=== PATIENT | male | born 1950 | race Caucasian/White ===

== ENCOUNTER 2016-07-27 12:09 | Emergency (ER) | payer OTHER ==
[2016-07-27] MEDS ORDERED: IOPAMIDOL-300 100 ML VIAL IVP ONE (18:04)
== END 2016-07-27 19:16 | disposition home or self-care (01) ==
DX: R07.9 Chest pain, unspecified (principal); I10 Essential (primary) hypertension; E78.00 Pure hypercholesterolemia, unspecified; Z85.528 Personal history of other malignant neoplasm of kidney; Z86.718 Personal history of other venous thrombosis and embolism; J45.909 Unspecified asthma, uncomplicated; M06.9 Rheumatoid arthritis, unspecified
CPT/HCPCS: 36415; 71020; 71275; 74177; 80053; 83690; 84484; 85025; 93005; 93010; 99283; 99285; Q9967

== ENCOUNTER 2016-09-12 08:20 | Outpatient (CLI) | payer OTHER ==
[2016-09-12 09:59] LABS: ALBUMIN/GLOBULIN RATIO 1.4 (1.0-2.2); BILIRUBIN,TOTAL 0.7 mg/dL (0.2-1.0); BUN - BLOOD UREA NITROGEN 14 mg/dL (6-20); CALCIUM 8.9 mg/dL (8.5-10.3); CARBON DIOXIDE - CO2 28 mmol/L (21-32); CHLORIDE 107 mmol/L (101-111); CHOL/HDL RATIO 5.8 (<5.0); CHOLESTEROL 214 mg/dL; GFR - MDRD 75 (>89); GLUCOSE 103 mg/dL (70-100); HDL CHOLESTEROL 37 mg/dL; LDL/HDL RATIO 4.1 (<3.6); POTASSIUM 3.8 mmol/L (3.5-5.0); SODIUM 141 mmol/L (135-145); TOTAL PROTEIN 7.1 g/dL (6.7-8.2); TRIGLYCERIDES 134 mg/dL; VLDL CHOLESTEROL 27 mg/dL
--- NOTE | 2016-09-12 15:30 | XRAY Report ---
LEFT SHOULDER, FOUR VIEWS: 09/12/2016 FINDINGS: Soft tissue is normal. No fracture or bone lesion is seen. [id number] narrowing of the left glenohumeral joint is noted with moderate-size spur seen emanating from the inferomedial as pect of the left humeral head. Left AC joint shows significant abnormality. IMPRESSION: CNTU-LI-WPLEKKTS OSTEOARTHRITIS OF THE LEFT GLENOHUMERAL JOINT IS NOTED. :9 JOB #: [id number] EXT JOB #:[id number]
== END 2016-09-12 08:21 | disposition home or self-care (01) ==
LOC: DI 08:20
PROVIDERS: ATTEND Physician Assistant
DX: I10 Essential (primary) hypertension (principal); R06.00 Dyspnea, unspecified; E55.9 Vitamin D deficiency, unspecified; C64.2 Malignant neoplasm of left kidney, except renal pelvis; E66.9 Obesity, unspecified; E78.5 Hyperlipidemia, unspecified; M19.012 Primary osteoarthritis, left shoulder
CPT/HCPCS: 36415; 80053; 80061; 82306; 84153; 84443; 93306

== ENCOUNTER 2019-03-11 11:11 | Outpatient (CLI) | payer MEDICARE, OTHER ==
--- NOTE | 2019-03-12 11:38 | XRAY Report ---
Reason: WHEEZING Procedure Date: 03/11/2019 Accession Number: [id number] / [id number] Procedure: XR - Chest 2 View X-Ray CPT Code: 13494 Final Report FULL RESULT: EXAM: CHEST RADIOGRAPHY EXAM DATE: 03/11/2019 11:30 AM. CLINICAL HISTORY: WHEEZING. COMPARISON: CHEST 2 VIEW PA/LAT 07/27/2016 12:39 PM. TECHNIQUE: 2 views. FINDINGS: Lungs/Pleura: Slightly low lung volumes with mild left basilar/lingular opacity. Small subtle opacity at left upper lung. No pulmonary edema. No pleural effusion. No pneumothorax. Mediastinum: Stable cardiomediastinal contours. There is tortuosity of thoracic aorta. Other: None. IMPRESSION: Slightly low lung volumes with mild opacities in left upper lung and base, probably atelectasis. RADIA
== END 2019-03-11 11:12 | disposition home or self-care (01) ==
LOC: DI 11:11
PROVIDERS: ATTEND Nurse Practitioner Family
DX: R91.8 Other nonspecific abnormal finding of lung field (principal)
CPT/HCPCS: 71046

== ENCOUNTER 2019-04-23 11:08 | Outpatient (CLI) | payer MEDICARE, OTHER ==
--- NOTE | 2019-04-23 12:17 | XRAY Report ---
Reason: DYSPNEA UNSPECIFIED,PLEUODYNIA,PAIN IN THORACIC S Procedure Date: 04/23/2019 Accession Number: [id number] / [id number] Procedure: XR - Thoracic Spine 2 View CPT Code: Final Report FULL RESULT: EXAM: THORACIC SPINE RADIOGRAPHY EXAM DATE: 04/23/2019 12:00 PM. CLINICAL HISTORY: DYSPNEA UNSPECIFIED, PLEUODYNIA, PAIN IN THORACIC S. COMPARISON: CHEST 2 VIEW 03/11/2019 11:24 AM. TECHNIQUE: 2 views. FINDINGS: Alignment: Right convex thoracic scoliosis is evident. No spondylolisthesis. Bones: Osteopenia is noted. No acute fracture lines are evident in the thoracic spine. Disks: Multilevel disk height loss with endplate sclerosis is seen in the thoracic spine. Soft Tissues: Low lung volumes noted. Linear basilar opacities could reflect atelectasis or scarring. IMPRESSION: 1. Osteopenia without evident acute fractures in the thoracic spine. 2. Right convex thoracic scoliosis noted. RADIA
--- NOTE | 2019-04-23 12:21 | XRAY Report ---
Reason: DYSPNEA UNSPECIFIED,PLEUODYNIA,PAIN IN THORACIC S Procedure Date: 04/23/2019 Accession Number: [id number] / [id number] Procedure: XR - Chest 2 View X-Ray CPT Code: 87670 Final Report FULL RESULT: EXAM: CHEST RADIOGRAPHY EXAM DATE: 04/23/2019 12:00 PM. CLINICAL HISTORY: DYSPNEA UNSPECIFIED, PLEUODYNIA, PAIN IN THORACIC S. COMPARISON: CHEST 2 VIEW 03/11/2019 11:24 AM. TECHNIQUE: 2 views. FINDINGS: Lungs/Pleura: Lung volumes are low. Linear basilar opacities likely reflect atelectasis or scarring. No other consolidation. No pneumothorax. No pleural effusions. Mediastinum: Stable heart size and mediastinum. Tortuous thoracic aorta with atherosclerotic plaque noted. Other: No acute osseous thoracic abnormality seen. IMPRESSION: 1. No radiographically evidence for acute cardiopulmonary process. Low lung volumes noted. RADIA
--- NOTE | 2019-04-23 12:27 | XRAY Report ---
Reason: DYSPNEA UNSPECIFIED,PLEUODYNIA,PAIN IN THORACIC S Procedure Date: 04/23/2019 Accession Number: [id number] / [id number] Procedure: XR - Ribs 3 View BILAT CPT Code: Final Report FULL RESULT: EXAM: BILATERAL RIB RADIOGRAPHY EXAM DATE: 04/23/2019 12:00 PM. CLINICAL HISTORY: DYSPNEA UNSPECIFIED, PLEUODYNIA, PAIN IN THORACIC S. COMPARISON: CHEST 2 VIEW 03/11/2019 11:24 AM. TECHNIQUE: 2 views. FINDINGS: Bones: Normal. No fracture or bone lesion. Lungs: No focal opacities evident. No pneumothorax or pleural effusions. Mediastinum: Heart and cardiomediastinal contours are unremarkable. Other: None. IMPRESSION: No displaced rib fractures are seen. No evidence for pneumothorax. RADIA
== END 2019-04-23 11:09 | disposition home or self-care (01) ==
LOC: DI 11:08
PROVIDERS: ATTEND Physician Assistant
DX: R07.81 Pleurodynia (principal); R06.00 Dyspnea, unspecified; M51.34 Other intervertebral disc degeneration, thoracic region; M41.9 Scoliosis, unspecified; M85.80 Other specified disorders of bone density and structure, unspecified site
CPT/HCPCS: 71046; 71110; 72070